=== PATIENT | female | born 1945 | race Caucasian/White ===

== ENCOUNTER → 2024-08-27 11:28 | Emergency (ER) | payer MEDICARE, OTHER, SELFPAY ==
[2024-08-27 11:29] VITALS: BP 126/73
[2024-08-27 12:00] VITALS: BMI 29.6
--- NOTE | 2024-08-27 13:35 | ED.GENMED ---
History of Present Illness
General
Chief Complaint: Back Pain
Time Seen by Provider: 08/27/24 11:41
History of Present Illness
History of Present Illness:
79-year-old female presents to the emergency department for evaluation of worsening low back pain for the past 2 to 3 weeks. She reports she has been having increasing 'sciatic' discomfort radiating down both legs laterally as well as paresthesias
to the perineal region and urinary incontinence. Has been unable to control her bladder for the past 7 days. She is able to ambulate and denies any lower extremity weakness. Has a prior history of cauda equina greater than 20 years ago that was
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 She was followed up as an outpatient by her primary care physician as well as her integrative medicine specialist who encouraged her to come to the emergency department for emergent
MRI to rule out cauda equina.
Past History
Past History
ED Past Medical History: CAD
ED Past Surgical History: None
Social History
Living: with family
Employment: Employed
Review of Systems
Review of Systems
Allergies reviewed?: Yes
All Other Systems: ROS reviewed and negative except as documented in HPI and ROS
Phy Exam
Physical Exam
Physical Exam:
GEN: Well appearing, NAD, WDWN
HEENT: Oral mucosa moist, no scleral icterus
Cardiac: Regular rate
Lung: No respiratory distress, no tachypnea
MSK: No gross deformity or injuries. Focal tenderness to the midline lumbar spine correlating with prior lumbar incisional site, no paraspinous muscle tenderness.
Skin: Good color, no pallor or jaundice, no rashes
Neuro: AO x3, moves all extremities freely. Bilateral lower extremity strength 5 out of 5 in all gutierrez and symmetric, slight hypoesthesia to lateral thighs bilaterally, other gutierrez without sensory deficit. Patellar reflexes 3+ bilaterally
Psych: Calm, cooperative
Course
Orders/Labs/Results
Orders:
Orders
08/27/24 12:08
CR Lumbar Spine Comp Min 4 Vw* Urgent
Comment:
Reason For Exam: back pain; urinary incontinence
08/27/24 12:46
MR Lumbar Without Contrast Urgent
Comment:
Reason For Exam: back pain/incontinence/perineal paresthesias
Recent pill cam endoscopy?: No
Vital Signs
Initial and Last Documented VS:
Initial Vital Signs
Temp Pulse Resp BP Pulse Ox
97.8 F 74 16 126/73 97
08/27/24 11:29 08/27/24 11:29 08/27/24 11:29 08/27/24 11:29 08/27/24 11:29
Last Documented Vital Signs
Temp Pulse Resp BP Pulse Ox
97.8 F 84 16 122/83 97
08/27/24 11:29 08/27/24 15:35 08/27/24 11:29 08/27/24 15:35 08/27/24 15:35
MDM/Problems Addressed
MDM/Problems Addressed:
79-year-old female presents with worsening low back pain and urinary incontinence. Given the urinary symptoms as well as the report of paresthesia to the perineum this is concerning for an acute spinal cord compression such as cauda equina,
particular concerning given that this patient has experienced cauda equina in the past. An urgent MRI was obtained which fortunately showed no evidence of acute cauda equina however advanced degenerative changes were noted. Will trial a course of
steroids and recommend outpatient follow up
*Critical Care Note
Total Time (30-74mins, 75-104mins- exclusive of procedures): Not Applicable
ED Attending Note
-
Portions of this chart may have been created with voice recognition software.� Occasional wrong word or��sound alike� substitutions may have occurred due to the inherent limitations of voice recognition software.
Discharge Plan
Departure
Patient Disposition: Home (Routine Discharge)
Date of Disposition: 08/27/24
Time of Disposition: 16:19
Patient with high blood pressure during this ER visit?: No
Discharge Problem:
Degenerative lumbar spinal stenosis
Instructions: Sciatica (DC)
Prescriptions:
New
methylprednisolone [Medrol (Sandeep)] 4 mg tablets,dose pack
See Rx Instructions .ROUTE .COMPLEX Qty: 21 0RF
Rx Instructions:
orally per package directions
No Action
propoxyphene N-acetaminophen 1 TABLET tablet
2 tab PO PRN (Reason: back/shoulder pain)
trazodone 100 MG tablet
100 mg PO HS
Patient Comments:
took darvocets last night as well so only took 50mg trazodone 06/22/09
sertraline 50 MG tablet
50 mg PO DAILY
Cod Liver Oil
2 tsp PO DAILY
Steroidal Nasal [place]
1 spray intranasal PRN (Reason: sinus infection/stuffy nose)
Referrals:
Checo Brady, [Family Provider] -
Activity Restrictions/Additional Instructions:
Follow-up with your neurosurgeon at [facility] as we discussed. Your MRI shows advanced degenerative changes however no evidence for an acute surgical emergency. We will trial a course of steroids.
Interventions
Interventions:
*Risk Screen - Suicide Last Done: 08/27/24 11:29
*General Assessment Last Done: 08/27/24 11:29
*ED COVID-19 Vaccine History Last Done: 08/27/24 11:29
ED-Musculoskeletal Assessment Last Done: 08/27/24 11:28
Discharge Date and Time
Print Language: [id number]
[2024-08-27 15:35] VITALS: BP 122/83
== END | disposition home or self-care (01) ==
LOC: EMR 11:28
PROVIDERS: EMERGENCY PHYSICIAN Emergency Medicine; FAMILY PHYSICIAN Internal Medicine
DX: M48.061 Spinal stenosis, lumbar region without neurogenic claudication (principal); M51.369 Other intervertebral disc degeneration, lumbar region without mention of lumbar back pain or lower extremity pain; I25.10 Atherosclerotic heart disease of native coronary artery without angina pectoris
CPT/HCPCS: 99284; 72110; 72148